=== PATIENT | male | born 1975 | race Caucasian/White ===

== ENCOUNTER 2017-11-22 15:49 | Emergency (ER) | payer SELFPAY ==
[~2017-11-22] VITALS: Ht 177.8 cm; Wt 86.7 kg
[2017-11-22 16:41] LABS: HEMATOCRIT 51.4 % (38.0-50.0); HEMOGLOBIN 18.6 G/DL (12.5-16.6); MCH 34.5 PG (29.0-34.0); MCHC 36.2 G/DL (30.0-36.0); MCV 95.4 FL (86-99); PLATELET COUNT 206 K/uL (156-360); RBC DIS.WIDTH-CV 13.4 % (11.8-14.6); RBC DIS.WIDTH-SD 47.3 % (39-53); RED BLOOD COUNT 5.39 M/uL (4.00-5.50); WHITE BLOOD COUNT 10.8 K/uL (4.1-10.2)
[2017-11-22 16:50] LABS: CHLORIDE 102 mEq/L (99-109); POTASSIUM 3.7 mEq/L (3.7-5.4); SODIUM 138 mEq/L (136-147)
[2017-11-22 16:52] LABS: GLUCOSE 84 mg/dL (70-99)
[2017-11-22 16:56] LABS: CREATININE 1.2 mg/dL (0.6-1.3); GFR ESTIMATE (CALCULATED) > 59 mL/min/ (58.99-99999)
[2017-11-22 16:57] LABS: UREA NITROGEN (BUN) 17 mg/dL (9-23)
[2017-11-22 16:58] LABS: CREATINE KINASE 147 IU/L (1-294)
[2017-11-22 17:35] VITALS: BP 145/101
== END 2017-11-22 17:52 | disposition home or self-care (01) ==
LOC: EME 15:49
PROVIDERS: Physician Assistant Medical
PROC: 3E0234Z Introduction of Serum, Toxoid and Vaccine into Muscle, Percutaneous Approach (ICD-10-PCS; principal; 2017-11-22)
DX: R25.1 Tremor, unspecified (principal); S71.111A Laceration without foreign body, right thigh, initial encounter; W31.2XXA Contact with powered woodworking and forming machines, initial encounter; Z88.0 Allergy status to penicillin; F17.200 Nicotine dependence, unspecified, uncomplicated
CPT/HCPCS: 80048; 82550; 85027; 99281; 99283